=== PATIENT | female | born 1930 | race Two or more races ===

== ENCOUNTER 2018-07-21 14:39 | Inpatient (IN) | payer MEDICARE, OTHER | END 2018-07-25 17:10 | LOC: ER 14:39 → TELE 19:21 → TELE-WESTW 21:35 | DX: S22.089A Unspecified fracture of T11-T12 vertebra, initial encounter for closed fracture (principal); E44.0 Moderate protein-calorie malnutrition; E11.21 Type 2 diabetes mellitus with diabetic nephropathy; I48.91 Unspecified atrial fibrillation; L03.116 Cellulitis of left lower limb; S32.010A Wedge compression fracture of first lumbar vertebra, initial encounter for closed fracture; I12.9 Hypertensive chronic kidney disease with stage 1 through stage 4 chronic kidney disease, or unspecified chronic kidney disease; E78.5 Hyperlipidemia, unspecified; N18.3 Chronic kidney disease, stage 3 (moderate); E11.22 Type 2 diabetes mellitus with diabetic chronic kidney disease; N39.0 Urinary tract infection, site not specified ==